=== PATIENT | male | born 1965 | race Caucasian/White ===

== ENCOUNTER → 2017-09-10 12:37 | Outpatient (CLI) | payer OTHER, SELFPAY ==
[2017-09-14 16:10] LABS: Albumin 4.1 g/dL (2.9-4.4); Alpha-1-Globulins 0.2 g/dL (0.0-0.4); Alpha-2-Globulins 0.7 g/dL (0.4-1.0); Gamma Globulin 1.7 g/dL (0.4-1.8); Immunoglobulin A 313 mg/dL (90-386); Immunoglobulin G 1407 mg/dL (700-1600); Immunoglobulin M 88 mg/dL (20-172); PROEL- TOTAL PROTEIN 8.1 g/dL (6.0-8.5)
[2017-09-15 12:27] LABS: IMMUNOFIXATION RESULT,S Comment: (.)
== END ==
DX: E88.09 Other disorders of plasma-protein metabolism, not elsewhere classified (principal)
CPT/HCPCS: 82784; 84165; 86334

== ENCOUNTER → 2017-11-02 15:10 | Outpatient (CLI) | payer OTHER, SELFPAY ==
[2017-11-04 16:10] LABS: Albumin 3.9 g/dL (2.9-4.4); Alpha-1-Globulins 0.2 g/dL (0.0-0.4); Alpha-2-Globulins 0.8 g/dL (0.4-1.0); Gamma Globulin 1.5 g/dL (0.4-1.8); Immunoglobulin A 299 mg/dL (90-386); Immunoglobulin G 1316 mg/dL (700-1600); Immunoglobulin M 97 mg/dL (20-172); PROEL- TOTAL PROTEIN 7.6 g/dL (6.0-8.5)
[2017-11-05 08:18] LABS: IMMUNOFIXATION RESULT,S Comment: (.)
== END ==
DX: E88.09 Other disorders of plasma-protein metabolism, not elsewhere classified (principal)
CPT/HCPCS: 82784; 84165; 86334